=== PATIENT | male | born 1995 | race Caucasian/White ===

== ENCOUNTER → 2016-10-04 | Outpatient (CLI) | payer OTHER ==
[~2016-10-04] MED LIST: IBUP-1427 PO; OXYC-57 PO; OXYC1TAB3 PO; TAMS0.4C38 PO
== END | disposition home or self-care (01) ==
LOC: C.LAB 02:15
DX: Z02.83 Encounter for blood-alcohol and blood-drug test (principal)

== ENCOUNTER → 2016-10-12 | Outpatient (CLI) | payer BC ==
[~2016-10-12] MED LIST changes: -IBUP-1427 PO; -OXYC-57 PO; -TAMS0.4C38 PO
--- NOTE | 2016-10-12 15:00 | DIAGNOSTIC IMAGING REPORT ---
RIGHT KNEE 2 VIEWS HISTORY: R KNEE PAIN Right COMPARISON: None. FINDINGS: There is no fracture or dislocation. Small knee effusion. No soft tissue swelling. Cartilage spaces are maintained. No radiopaque foreign bodies. IMPRESSION: No fractures. Small knee effusion. Electronically signed by: Orlando Hooper M.D. 10/12/2016 2:58 PM Dictated Date/Time: 10/12/2016 2:58 PM
== END | disposition home or self-care (01) ==
LOC: C.RAD1850 14:47
PROVIDERS: ATTEND Family Medicine
DX: M25.569 Pain in unspecified knee (principal)

== ENCOUNTER → 2016-10-20 | Outpatient (CLI) | payer BC ==
--- NOTE | 2016-10-20 15:51 | DIAGNOSTIC IMAGING REPORT ---
MRI OF THE RIGHT KNEE WITHOUT CONTRAST CLINICAL HISTORY: Right knee pain. Joint effusion. COMPARISON STUDY: Right knee radiographs October 12, 2016. TECHNIQUE: Utilizing 1.5 Leanne magnet, multiplanar, multiecho imaging of the right knee was performed without intravenous or intra-articular contrast. FINDINGS: Alignment of the right knee is anatomic. There is a moderate size right knee joint effusion. No loose bodies are identified. There is no marrow edema or marrow replacement. The cartilage is intact. No meniscal tear is identified. The cruciate and collateral ligaments are also intact. Note is made of moderate edema within visualized portions of the popliteus muscle. A elongated cystic abnormality within the popliteus is noted. This has several components. The largest component measures 2.1 x 0.5 cm. IMPRESSION: 1. Intact cruciate and collateral ligaments. 2. Moderate size right knee joint effusion. 3. Moderate edema within visualized portions of the popliteus muscle with an associated multiloculated small cystic abnormality within the muscle. The findings are nonspecific but favor a traumatic etiology such as muscle strain. 4. No meniscal tear. Electronically signed by: Lonnie Good M.D. 10/20/2016 3:49 PM Dictated Date/Time: 10/20/2016 12:07 PM
== END | disposition home or self-care (01) ==
LOC: C.MRI 11:01
PROVIDERS: ATTEND Family Medicine Sports Medicine
DX: M25.461 Effusion, right knee (principal); M79.89 Other specified soft tissue disorders

== ENCOUNTER 2017-09-02 09:10 | Emergency (ER) | payer BC ==
[~2017-09-02] VITALS: Ht 180.3 cm; Wt 81.7 kg
[2017-09-02 09:13] VITALS: TEMP 36.7; Ht 180.3 cm; Wt 81.7 kg
[2017-09-02] MEDS ORDERED: MoRPHine SULFATE 10 MG/ML CARP/VIAL IV PRN (10:00)
[2017-09-02] MEDS ORDERED: MoRPHine SULFATE 4 MG/ML 1 ML CARP\\VIAL ONE ×2 (10:18→12:02)
[2017-09-02] MEDS: ONDANSETRON INJ 2 MG/ML 2 ML VIAL IV PRN ×2 (10:20→12:03)
[2017-09-02 10:24] LABS: MANUAL MICROSCOPIC REQUIRED? NO; REVIEW REQ? NO; URINE APPEARANCE CLEAR (CLEAR); URINE BILIRUBIN NEG (NEG); URINE COLOR YELLOW; URINE EPITHELIAL CELL AUTO 0-5 /lpf (0-5); URINE NITRITE NEG (NEG); URINE PH 7.5 (4.5-7.5); URINE SPECIFIC GRAVITY 1.009 (1.000-1.030); UROBILINOGEN NEG (NEG); ZZUR CULT IF INDIC CLEAN CATCH NO
[2017-09-02 10:27] LABS: HEMATOCRIT 42.9 % (42-52); MEAN CELL VOLUME 84.1 fL (80-100); MEAN CORPUSCULAR HEMOGLOBIN 30.4 pg (25-34); MEAN CORPUSCULAR HGB CONC 36.1 g/dl (32-36); MEAN PLATELET VOLUME 9.6 fL (7.4-10.4); PLATELET COUNT 284 K/uL (130-400); WHITE BLOOD COUNT 6.54 K/uL (4.8-10.8)
[2017-09-02 10:34] LABS: BUN/CREATININE RATIO 12.4 (10-20); CALCIUM 9.3 mg/dl (8.5-10.1); CREATININE 0.85 mg/dl (0.60-1.40)
--- NOTE | 2017-09-02 11:09 | DIAGNOSTIC IMAGING REPORT ---
ULTRASOUND KIDNEYS AND BLADDER CLINICAL HISTORY: Right flank pain. COMPARISON STUDY: Abdominal CT dated 08/10/2016. TECHNIQUE: Real-time, grayscale, and color flow sonography of the kidneys and bladder is performed. Images are reviewed in the transverse and longitudinal planes. FINDINGS: Kidneys: The kidneys are normal in size and echotexture. The right kidney measures 11.6 cm in length and the left kidney measures 11.1 cm in length. There is no hydronephrosis. No shadowing renal calculi are identified. There is no sonographic evidence of contour deforming renal mass lesion. No perinephric fluid is identified. Bladder: The bladder is normal in appearance. Bilateral ureteral jets were seen. IMPRESSION: Unremarkable sonographic assessment of the kidneys and bladder. Electronically signed by: Garth Owens M.D. 09/02/2017 11:08 AM Dictated Date/Time: 09/02/2017 11:07 AM
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
[2017-09-02] MEDS ORDERED: OXYC-57 PO ×2 (12:33→12:49)
[2017-09-02 12:47] VITALS: BP 137/71; PULSE 79; O2SAT 99
[2017-09-02] MEDS ORDERED: IBUP-1427 PO (12:49)
[2017-09-02] MEDS ORDERED: TAMS0.4C38 PO (12:49)
== END 2017-09-02 13:11 | disposition home or self-care (01) ==
LOC: C.EDB 09:11
DX: N23 Unspecified renal colic (principal); S83.91XA Sprain of unspecified site of right knee, initial encounter; X58.XXXA Exposure to other specified factors, initial encounter; Z87.442 Personal history of urinary calculi; Z82.49 Family history of ischemic heart disease and other diseases of the circulatory system; Z80.9 Family history of malignant neoplasm, unspecified; Z83.3 Family history of diabetes mellitus; Z83.79 Family history of other diseases of the digestive system; Z84.1 Family history of disorders of kidney and ureter

== ENCOUNTER 2018-01-05 19:21 | Emergency (ER) | payer BC, OTHER ==
[~2018-01-05] VITALS: Ht 182.9 cm; Wt 84.7 kg
[~2018-01-05 19:21] MED LIST changes: +IBUP-1427 PO; +OXYC-57 PO; -OXYC1TAB3 PO
[2018-01-05 19:23] VITALS: TEMP 36.6; Ht 182.9 cm; Wt 84.7 kg
[2018-01-05] MEDS ORDERED: KETOROLAC TROMETHAMINE 30 MG/ML VIAL IV STA (19:32)
[2018-01-05] MEDS ORDERED: SODIUM CHLORIDE 0.9% 1000ML 1,000 ML IV ONE (19:32)
[2018-01-05] MEDS ORDERED: SODIUM CHLORIDE 0.9% 1000ML 1,000 ML IV STA (19:32)
[2018-01-05] MEDS ORDERED: ONDANSETRON INJ 2 MG/ML 2 ML VIAL IV STA (19:32)
[2018-01-05 19:57] LABS: BASO % 0.3 %; BASO ABS # 0.02 K/uL (0-0.2); EOS % 2.8 %; EOS ABS # 0.17 K/uL (0-0.5); HEMOGLOBIN 16.9 g/dL (14.0-18.0); IG# 0.01 K/uL (0.00-0.02); LYMPH % 31.9 %; LYMPH ABS # 1.96 K/uL (1.2-3.4); MEAN CELL VOLUME 82.7 fL (80-100); MEAN CORPUSCULAR HEMOGLOBIN 30.4 pg (25-34); MEAN CORPUSCULAR HGB CONC 36.7 g/dl (32-36); MEAN PLATELET VOLUME 9.2 fL (7.4-10.4); MONO % 8.1 %; NEUT % 56.7 %; NEUT ABS # 3.48 K/uL (1.4-6.5); PLATELET COUNT 291 K/uL (130-400); RED CELL DISTRIBUTION WIDTH CV 12.5 % (11.5-14.5); RED CELL DISTRIBUTION WIDTH SD 37.4 fL (36.4-46.3); WHITE BLOOD COUNT 6.14 K/uL (4.8-10.8)
--- NOTE | 2018-01-05 20:13 | DIAGNOSTIC IMAGING REPORT ---
KUB CLINICAL HISTORY: 22 years-old Male presenting with eval for stone on right. TECHNIQUE: Single supine view of the abdomen was obtained. COMPARISON: CT from 08/10/2016 and plain radiograph from 02/21/2016 FINDINGS: Nonobstructive bowel gas pattern. No gross pneumoperitoneum. Allowing for bowel gas and stool, no calcifications to suggest nephrolithiasis. Left pelvic phlebolith noted. Osseous structures normal. IMPRESSION: 1. No acute intra-abdominal pathology. Electronically signed by: Rony Gonzalez M.D. 01/05/2018 8:12 PM Dictated Date/Time: 01/05/2018 8:11 PM
[2018-01-05 20:14] LABS: ALBUMIN 4.8 gm/dl (3.4-5.0); CALCIUM 9.2 mg/dl (8.5-10.1); CREATININE 0.88 mg/dl (0.60-1.40); POTASSIUM 3.5 mmol/L (3.5-5.1)
[2018-01-05 20:17] LABS: TOTAL PROTEIN 8.8 gm/dl (6.4-8.2)
[2018-01-05] MEDS ORDERED: MoRPHine SULFATE 4 MG/ML 1 ML CARP\\VIAL IV STA (20:53)
--- NOTE | 2018-01-05 21:45 | DIAGNOSTIC IMAGING REPORT ---
(RENAL)RETROPERITON COMP CLINICAL HISTORY: 22 years-old Male presenting with eval for stones on right. TECHNIQUE: Real-time grayscale and limited color Doppler ultrasound imaging of the kidneys and bladder was performed. COMPARISON: 09/02/2017. FINDINGS: Right kidney: Normal echogenicity of renal parenchyma. Right kidney measures 10.9 cm. No hydronephrosis. No convincing evidence of calculus or mass. Left kidney: Normal echogenicity of renal parenchyma. Left kidney measures 11.0 cm. No hydronephrosis. No convincing evidence of calculus or mass. Bladder: Normal. Bilateral ureteral jets present. Other: None. IMPRESSION: 1. Normal renal ultrasound. No obstruction. Electronically signed by: Rony Gonzalez M.D. 01/05/2018 9:44 PM Dictated Date/Time: 01/05/2018 9:43 PM
[2018-01-05] MEDS ORDERED: TAMS0.4C38 PO (22:36)
[2018-01-05] MEDS ORDERED: OXYC1TAB3 PO (22:36)
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
[2018-01-05] MEDS ORDERED: OXYCODONE IR HOME PACK PO ONE (22:45)
[2018-01-05] MEDS ORDERED: TAMSULOSIN HCL 0.4 MG CAP PO ONE (22:45)
[2018-01-05 23:36] VITALS: BP 140/82; PULSE 72; O2SAT 97
== END 2018-01-05 23:37 | disposition home or self-care (01) ==
LOC: C.EDB 19:22
DX: R10.9 Unspecified abdominal pain (principal); N23 Unspecified renal colic